=== PATIENT | female | born 1945 | race Caucasian/White ===

== ENCOUNTER 2022-10-11 08:55 | Emergency (ER) | payer MEDICARE, BC, SELFPAY ==
--- NOTE | 2022-10-11 09:10 | CT_ITS ---
The [address] [address] Patient Name: EBONI LEE MRN: [id number] date: 1945 Sex: F Assigned Patient Location: ER Current Patient Location: ED.MAIN Accession/Order Number: [id number] Exam Date: 10/11/2022 09:25 Report Date: 10/11/2022 09:58 At the request of: CADY LIU Procedure: CT lumbar spine wo con EXAMINATION: CT lumbar spine wo con HISTORY: pain COMPARISON: No relevant comparison available. TECHNIQUE: Axial, Coronal, and Sagittal images were created without IV contrast. Dose reduction techniques were achieved by using automated exposure control and/or adjustment of mA and/or kV according to patient size and/or use of iterative reconstruction technique. FINDINGS: VERTEBRAL BODIES: Compression fracture of superior endplate L4 with moderate loss of vertebral body height. FACET JOINTS: Moderate degenerative facet arthropathy L4-5, L5-S1 with bone encroachment on the neural foramen. DISCS: Large posterior disc-osteophyte complex L3-4, L4-5 causing marked central canal narrowing and moderate marked foramen narrowing on the right. Mild-moderate degenerative disc disease L1-2, L2-3, L5-S1. CENTRAL CANAL: No evidence of hemorrhage. PARASPINAL AREA: Stone within noninflamed gallbladder. IMPRESSION: 1. Acute to subacute L4 moderate compression fracture with moderate retropulsion of the posterior superior corner in conjunction with disc bulging. 2. Marked central canal narrowing L4-5, L5-S1 secondary to large posterior disc-osteophyte complexes and bilateral facet arthropathy. While most likely chronic, there may be acute exacerbation at the L3-4 level secondary to compression fracture and retropulsion of the posterior superior corner of L4. Electronically authenticated by: DESTINY KOLB Date: 10/11/2022 09:58
[2022-10-11 09:14] VITALS: BP 127/90; PULSE 77; RESP 18; TEMP 36.6; O2SAT 98; BMI 26.6
--- NOTE | 2022-10-11 09:16 | ED.BACK1 ---
HPI - Back Pain/Injury General Chief Complaint: Back Pain/Injury Stated Complaint: low back pain Time Seen by Provider: 10/11/22 09:10 History of Present Illness HPI Narrative: this patient states that she started having some discomfort in her low back area about two weeks ago. She was able to tolerate it. She did not have a loss of bowel or bladder function or radiculopathy type symptoms. And then approximately a week ago she was lifting a 40 pound bag of topsoil and had a pulling type sensation in her low back. This past week she wants her primary care doctor who gave her shot of steroids and also advised [id number] NSAIDs. She has not had any symptomatic improvement since that time. She is not running a fever. Again no involuntary loss of bowel or bladder function. She said the pain radiates down her left lateral thigh to just above the knee. She's not had previous back surgery or specific trauma other than the lifting as described above. Related Data Home Medications Medication Instructions Recorded Confirmed antiarthritic combination no.2 900 mg PO 10/11/22 mg tablet (glucosamine-chondroitin) aspirin 81 mg tablet,delayed mg 10/11/22 release calcium carbonate 600 mg-vitamin 1 tab PO DAILY 10/11/22 10/11/22 D3 5 mcg (200 unit) tablet (Calcium 600 + D(3)) cholecalciferol (vitamin D3) 50 2,000 unit PO DAILY 10/11/22 10/11/22 mcg (2,000 unit) capsule diclofenac sodium 1 % topical gel topical 10/11/22 furosemide 40 mg tablet mg 10/11/22 omeprazole 20 mg capsule,delayed mg 10/11/22 release potassium chloride 10 mEq meq PO 10/11/22 tablet,extended release(part/cryst) psyllium husk 0.52 gram capsule 1.04 g PO DAILY 10/11/22 10/11/22 (Daily Fiber) simvastatin 20 mg tablet mg 10/11/22 thyroid (pork) 60 mg tablet mg 10/11/22 ([place] Thyroid) Allergies Allergy/AdvReac Type Severity Reaction Status Date / Time alendronate sodium Allergy Mild Verified 10/11/22 09:12 citalopram Allergy Mild Verified 10/11/22 09:12 Exam Narrative Exam Narrative: very pleasant awake alert oriented mild to moderate discomfort. Constitutional Vital Signs - 24 hr 10/11/22 09:14 Temperature 97.8 F Pulse Rate [Monitor] 77 Respiratory Rate 18 Blood Pressure [Left Arm] 127/90 H Pulse Oximetry 98 Oxygen Delivery Method Room Air Common normals: oriented x3 and healthy appearing Chest Common normals: inspection of chest normal Other: no respiratory distress Back & Pelvis Common normals: no CVA tenderness and thoracic and lumbar spine normal to inspection Other: small bruised area to the left and midline high lumbar area from previous injection from her primary care physician otherwise back appears normal Neuro Common normals: oriented x3, CN's II-XII intact bilaterally, moves all extremities and no focal motor deficits Course Vital Signs Vital signs: Vital Signs Temperature 97.8 F 10/11/22 09:14 Pulse Rate 77 10/11/22 09:14 Respiratory Rate 18 10/11/22 09:14 Blood Pressure 127/90 H 10/11/22 09:14 Pulse Oximetry 98 10/11/22 09:14 Oxygen Delivery Method Room Air 10/11/22 09:14 Temperature 97.8 F 10/11/22 09:14 Pulse Rate 77 10/11/22 09:14 Respiratory Rate 18 10/11/22 09:14 Blood Pressure 127/90 H 10/11/22 09:14 Pulse Oximetry 98 10/11/22 09:14 Oxygen Delivery Method Room Air 10/11/22 09:14 Discharge Plan Discharge Chief Complaint: Back Pain/Injury Clinical Impression: Closed compression fracture of L4 vertebra Qualifiers: Encounter type: initial encounter Qualified Code(s): S32.040A - Wedge compression fracture of fourth lumbar vertebra, initial encounter for closed fracture Patient Disposition: Home, Self-Care Time of Disposition Decision: 10:11 Prescriptions / Home Meds: No Action furosemide 40 mg tablet aspirin 81 mg tablet,delayed release (DR/EC) simvastatin 20 mg tablet omeprazole 20 mg capsule,delayed release(DR/EC) potassium chloride 10 mEq tablet,ER particles/crystals PO diclofenac sodium 1 % gel TOPICAL [place] Thyroid 60 mg tablet calcium carbonate-vitamin D3 [Calcium 600 + D(3)] 600 mg-5 mcg (200 unit) tablet 1 tab PO DAILY psyllium husk [Daily Fiber] 0.52 gram capsule 1.04 g PO DAILY glucosamine-chondroitin 900 mg tablet PO cholecalciferol (vitamin D3) 50 mcg (2,000 unit) capsule 2,000 unit PO DAILY Instructions: Thoracolumbar Fracture (ED) Additional Instructions: prescription for [place] given and advised follow-up with primary care doctor for referral to spine surgeon to consider kyphoplasty Stand Alone Forms: Portal Instructions Referrals: SUSAN CANTU [Primary Care Provider] - 1 week
[2022-10-11] MEDS: HYDROCODONE/ACETAMINOPHEN 5-325 MG TABLET 1 TAB PO (10:20)
[2022-10-11 10:31] VITALS: BP 150/90; PULSE 64; RESP 16; O2SAT 97
== END 2022-10-11 10:33 | disposition home or self-care (01) ==
PROVIDERS: Emergency Provider Emergency Medicine Emergency Medical Services; PCP Internal Medicine
DX: S32.040A Wedge compression fracture of fourth lumbar vertebra, initial encounter for closed fracture (principal); X50.0XXA Overexertion from strenuous movement or load, initial encounter; Z79.82 Long term (current) use of aspirin; Z79.899 Other long term (current) drug therapy
CPT/HCPCS: 72131; 99284

== ENCOUNTER 2022-10-14 08:46 | Outpatient (OUT) | payer MEDICARE, BC, SELFPAY ==
--- NOTE | 2022-10-14 09:01 | XR_ITS ---
[place] [id number] Patient Name: EBONI LEE MRN: [id number] date: 1945 Sex: F Assigned Patient Location: [facility] Current Patient Location: [facility] Accession/Order Number: [id number] Exam Date: 10/14/2022 09:15 Report Date: 10/14/2022 10:55 At the request of: SUSAN CANTU Procedure: XR knee LT 4V EXAM: XR knee LT 4V HISTORY: Acute Pain Of Left Knee M25.562 COMPARISON: None. TECHNIQUE: 4 views FINDINGS: No acute fracture or dislocation. Mild degenerative changes of the knee joint. Soft tissue swelling. IMPRESSION: Mild degenerative changes as above. Electronically authenticated by: ANSELMO GONZALEZ Date: 10/14/2022 10:55
== END 2022-10-14 08:47 ==
PROVIDERS: PCP Internal Medicine; Visit Provider Internal Medicine
DX: M25.562 Pain in left knee (principal)
CPT/HCPCS: 73564

== ENCOUNTER 2023-05-08 21:34 | Emergency (ER) | payer MEDICARE, BC, SELFPAY ==
[2023-05-08 21:38] VITALS: BP 117/68; PULSE 83; RESP 16; TEMP 36.7; O2SAT 97
--- NOTE | 2023-05-08 22:50 | PC.NURSE ---
Pt presents to ER after she believes she swallowed the plastic tip to a gathering machine feeder Pt states she was sitting in her recliner flossing her teeth and realized the plastic piece was missing Pt states she looked through her chair but was unable to find it Pt did not feel it get stuck but when she thinks about it now, she thinks she can feel it in her throat Pt brought in one of the flossers she was using- the piece she is speaking of does not appear plastic to this nurse, more so a hardened piece of the floss itself (giving it the ability to go under or through dental devices)
--- NOTE | 2023-05-08 23:46 | ED_ITS ---
HPI - General Adult General Chief complaint: Dental/Oral Stated complaint: Swallowed foreign object Time Seen by Provider: 05/08/23 21:43 Source: patient Mode of arrival: walk-in Limitations: no limitations History of Present Illness HPI narrative: The patient was flossing her teeth using a plastic device and the end broke off and she accidentally swallowed it. This occurred around 8pm tonight. She tried drinking water and eating a slice of bread because she had the sensation that something might be stuck deep in the back of the throat. The sensation has decreased over time but she was afraid to go to sleep. her concern is that she might choke. No difficulty talking or breathing. No difficulty swallowing. Related Data Home Medications Medication Instructions Recorded Confirmed antiarthritic combination no.2 900 mg PO 10/11/22 mg tablet (glucosamine-chondroitin) aspirin 81 mg tablet,delayed mg 10/11/22 release calcium carbonate 600 mg-vitamin 1 tab PO DAILY 10/11/22 10/11/22 D3 5 mcg (200 unit) tablet (Calcium 600 + D(3)) cholecalciferol (vitamin D3) 50 2,000 unit PO DAILY 10/11/22 10/11/22 mcg (2,000 unit) capsule diclofenac sodium 1 % topical gel topical 10/11/22 furosemide 40 mg tablet mg 10/11/22 omeprazole 20 mg capsule,delayed mg 10/11/22 release potassium chloride 10 mEq meq PO 10/11/22 tablet,extended release(part/cryst) psyllium husk 0.52 gram capsule 1.04 g PO DAILY 10/11/22 10/11/22 (Daily Fiber) simvastatin 20 mg tablet mg 10/11/22 thyroid (pork) 60 mg tablet mg 10/11/22 ([place] Thyroid) Allergies Allergy/AdvReac Type Severity Reaction Status Date / Time alendronate sodium Allergy Mild Verified 05/08/23 21:44 citalopram Allergy Mild Verified 05/08/23 21:44 [facility] Social History (System 10/28/22 @ 13:51 by Tyra Montanez) Smoking status: Never smoker Exam Narrative Exam Narrative: Nurses notes and vital signs reviewed and patient is not hypoxic. afebrile General: Well-appearing and in no apparent distress. Skin: Warm, dry, no pallor noted. Neck: Supple, non-tender. Normal swallowing mechanics on exam Eye: Pupils are equal, round and EOMI. No scleral icterus. Ears, Nose, Mouth, and Throat: no posterior oropharynx erythema or foreign body noted, uvula is mid-line. Oral mucosa is moist Cardiovascular: Normal peripheral perfusion. Respiratory: No accessory muscle use or respiratory distress. Neurological: A&O x4. No cranial nerve dysfunction observed. No truncal ataxia. Moves all extremities. Sensation intact. Psychiatric: Cooperative and interactive. Normal mood and affect. Constitutional Vital Signs, click to edit/add: Last Vital Signs Temp 98.0 F 05/08/23 21:38 Pulse 83 05/08/23 21:38 Resp 16 05/08/23 21:38 BP 117/68 05/08/23 21:38 Pulse Ox 97 05/08/23 21:38 O2 Del Method Room Air 05/08/23 21:38 Course Vital Signs Vital signs: Vital Signs Temperature 98.0 F 05/08/23 21:38 Pulse Rate 83 05/08/23 21:38 Respiratory Rate 16 05/08/23 21:38 Blood Pressure 117/68 05/08/23 21:38 Pulse Oximetry 97 05/08/23 21:38 Oxygen Delivery Method Room Air 05/08/23 21:38 Temperature 98.0 F 05/08/23 21:38 Pulse Rate 83 05/08/23 21:38 Respiratory Rate 16 05/08/23 21:38 Blood Pressure 117/68 05/08/23 21:38 Pulse Oximetry 97 05/08/23 21:38 Oxygen Delivery Method Room Air 05/08/23 21:38 Medical Decision Making MDM Narrative Medical decision making narrative: I do not see any evidence of retained foreign body on examination of the patient's oropharynx. Her swallowing mechanics appear normal. She is not having any respiratory distress, trouble breathing, talking or swallowing. She was given reassurance and discharged home with referral information for a local ear nose and throat physician to follow-up as needed. Discharge Plan Discharge Chief Complaint: Dental/Oral Clinical Impression: Foreign body, swallowed Patient Disposition: Home, Self-Care Time of Disposition Decision: 23:50 Prescriptions / Home Meds: No Action furosemide 40 mg tablet aspirin 81 mg tablet,delayed release (DR/EC) simvastatin 20 mg tablet omeprazole 20 mg capsule,delayed release(DR/EC) potassium chloride 10 mEq tablet,ER particles/crystals PO diclofenac sodium 1 % gel TOPICAL [place] Thyroid 60 mg tablet calcium carbonate-vitamin D3 [Calcium 600 + D(3)] 600 mg-5 mcg (200 unit) tablet 1 tab PO DAILY psyllium husk [Daily Fiber] 0.52 gram capsule 1.04 g PO DAILY glucosamine-chondroitin 900 mg tablet PO cholecalciferol (vitamin D3) 50 mcg (2,000 unit) capsule 2,000 unit PO DAILY Instructions: Foreign Body Ingestion (ED) Stand Alone Forms: Portal Instructions Referrals: SUSAN CANTU [Primary Care Provider] - 1 week Sharon Diego MD [Physician] - As needed
== END 2023-05-08 23:56 | disposition home or self-care (01) ==
PROVIDERS: Emergency Provider Emergency Medicine; PCP Internal Medicine
DX: T18.9XXA Foreign body of alimentary tract, part unspecified, initial encounter (principal); Z79.899 Other long term (current) drug therapy; Z79.82 Long term (current) use of aspirin; Z79.890 Hormone replacement therapy
CPT/HCPCS: 99281

== ENCOUNTER 2023-12-11 07:30 | Outpatient (RCR) | payer MEDICARE, BC, SELFPAY ==
[2023-12-11 09:50] VITALS: BP 132/85; PULSE 70; TEMP 37.2; O2SAT 96
[2023-12-11] MEDS: DENOSUMAB 60 MG/ML SYRINGE SQ (10:06)
--- NOTE | 2023-12-11 10:21 | PC.NURSE ---
0950: Pt. to [facility] amb. for injection. Seated in recliner. VSS. Medicated with Prolia SQ as ordered. Pt. tolerated without c/o. No bleeding to site. 1020: Pt. without s&s of adverse reaction. No bleeding to site. D/c'd amb. to home.
== END 2024-01-06 23:59 | disposition home or self-care (01) ==
LOC: INF 07:30
PROVIDERS: PCP Internal Medicine; Visit Provider Internal Medicine
DX: M81.0 Age-related osteoporosis without current pathological fracture (principal)
CPT/HCPCS: 96372; J0897

== ENCOUNTER 2024-06-21 07:39 | Outpatient (RCR) | payer MEDICARE, BC, SELFPAY ==
[2024-06-21 11:52] VITALS: BP 123/80; PULSE 75; TEMP 35.7; O2SAT 97
[2024-06-21] MEDS: DENOSUMAB 60 MG/ML SYRINGE SUBQ (12:12)
== END 2024-06-24 07:56 | disposition home or self-care (01) ==
LOC: INF 07:39
PROVIDERS: PCP Internal Medicine; Visit Provider Internal Medicine
DX: M81.0 Age-related osteoporosis without current pathological fracture (principal)
CPT/HCPCS: 96372; J0897

== ENCOUNTER 2024-12-23 07:32 | Outpatient (RCR) | payer MEDICARE, BC, SELFPAY ==
[2024-12-23 09:45] VITALS: BP 143/70; PULSE 86; TEMP 36.9; O2SAT 96
[2024-12-23] MEDS: DENOSUMAB 60 MG/ML SYRINGE SQ (10:36)
== END 2025-01-04 23:59 | disposition home or self-care (01) ==
LOC: LAB 07:32
PROVIDERS: PCP Internal Medicine; Visit Provider Internal Medicine
DX: M81.0 Age-related osteoporosis without current pathological fracture (principal)
CPT/HCPCS: 96372; J0897